=== PATIENT | female | born 1950 | race Hispanic/Latino ===

== ENCOUNTER → 2017-08-14 | Outpatient (CLI) | payer OTHER, MEDICARE | END | disposition home or self-care (01) | LOC: RAH 10:24 | PROVIDERS: ATTEND Family Medicine | DX: Z12.31 Encounter for screening mammogram for malignant neoplasm of breast (principal) | CPT/HCPCS: 77067 ==

== ENCOUNTER → 2019-10-01 | Outpatient (CLI) | payer OTHER, MEDICARE | END | disposition home or self-care (01) | LOC: RAH 13:15 | PROVIDERS: ATTEND Family Medicine | DX: Z12.31 Encounter for screening mammogram for malignant neoplasm of breast (principal) | CPT/HCPCS: 77067 ==

== ENCOUNTER → 2020-10-06 | Outpatient (CLI) | payer OTHER, MEDICARE | END | disposition home or self-care (01) | LOC: RAH 14:35 | PROVIDERS: ATTEND Family Medicine | DX: Z12.31 Encounter for screening mammogram for malignant neoplasm of breast (principal) | CPT/HCPCS: 77067 ==

== ENCOUNTER → 2022-05-14 | Outpatient (CLI) | payer OTHER, MEDICARE | END | disposition home or self-care (01) | LOC: RAH 13:56 | PROVIDERS: ATTEND Family Medicine | DX: Z12.31 Encounter for screening mammogram for malignant neoplasm of breast (principal) | CPT/HCPCS: 77067 ==

== ENCOUNTER → 2023-05-15 | Outpatient (CLI) | payer OTHER, MEDICARE | END | disposition home or self-care (01) | LOC: RAH 09:04 | PROVIDERS: ATTEND Family Medicine | DX: Z12.31 Encounter for screening mammogram for malignant neoplasm of breast (principal) | CPT/HCPCS: 77067 ==

== ENCOUNTER 2024-05-24 22:22 | Inpatient (IN) | payer OTHER, MEDICARE ==
[~2024-05-24] VITALS: Ht 152.4 cm; Wt 63.3 kg
--- NOTE | 2024-05-24 22:36 | EKG ---
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
[2024-05-24 23:13] LABS: BASOPHILS # (AUTO) 0.03 K/uL (0.00-0.20); BASOPHILS % (AUTO) 0.3 % (0.0-5.0); EOSINOPHILS # (AUTO) 0.05 K/uL (0.00-0.70); EOSINOPHILS % (AUTO) 0.5 % (0.0-8.0); HEMATOCRIT 39.8 % (36-48); IMMATURE GRANULOCYTE ABSOLUTE 0.06 K/uL (0-1); LYMPHOCYTES # (AUTO) 1.7 K/uL (1.0-4.8); LYMPHOCYTES % (AUTO) 15.9 % (21.0-51.0); MEAN CORPUSCULAR HEMOGLOBIN 27.9 pg (27.0-33.0); MEAN CORPUSCULAR HGB CONC 32.2 g/dL (32.0-36.0); MEAN CORPUSCULAR VOLUME 86.9 fL (79-99); MONOCYTES # (AUTO) 0.5 K/uL (0.1-1.0); MONOCYTES % (AUTO) 5.1 % (3.0-13.0); NEUTROPHILS # (AUTO) 8.2 K/uL (1.8-7.7); NEUTROPHILS % (AUTO) 77.6 % (40.0-77.0); PLATELET COUNT (AUTO) 325 K/uL (130-400); RED BLOOD CELL COUNT(AUTO) 4.58 MIL/uL (4.00-5.50); RED CELL DISTRIBUTION WIDTH 13.2 % (11.0-15.5); WHITE BLOOD COUNT (AUTO) 10.6 K/uL (4.8-10.8)
[2024-05-24 23:26] LABS: POTASSIUM 3.4 mmol/L (3.5-5.1)
[2024-05-24 23:32] LABS: ALBUMIN 3.5 g/dL (3.5-5.0); BILIRUBIN,DIRECT 0.1 mg/dL (0.0-0.3); BILIRUBIN,TOTAL 0.6 mg/dL (0.2-1.0); TOTAL PROTEIN, SERUM 7.1 g/dL (6.0-8.3)
[2024-05-24] MEDS: ondanSETRON 4MG INJ IVP ONE (23:43)
[2024-05-24] MEDS: morPHINE 4 MG SYG IVP ONE (23:44)
[2024-05-24] MEDS: LACTATED RINGERS 1000ML 1,000 ML IV ONE (23:45)
[2024-05-24 23:56] LABS: APPEARANCE,URINE CLOUDY (CLEAR); BILIRUBIN,URINE NEGATIVE (NEGATIVE); COLOR,URINE LIGHT-YELLOW (YELLOW); GLUCOSE, URINE (UA) NEGATIVE (NEGATIVE); KETONES,URINE 20 mg/dL (NEGATIVE); LEUKOCYTE ESTERASE ,URINE 250 Leu/uL (NEGATIVE); NITRATE,URINE NEGATIVE (NEGATIVE); OCCULT BLOOD,URINE LARGE (NEGATIVE); PH,URINE 6.5 (5.0-8.0); PROTEIN,URINE 20 mg/dL (NEGATIVE); UROBILINOGEN,URINE 0.2 mg/dL (0.2-1.0)
[2024-05-25 00:02] LABS: ADD UA MICROSCOPIC YES
[2024-05-25 00:03] LABS: BACTERIA,URINE None Seen /HPF (None Seen); RBC,URINE TNTC /HPF (0-1); SQUAMOUS EPITHELIAL CELL,UR Few /HPF (0-2); WBC,URINE 26-50 /HPF (0-1)
[2024-05-25 00:04] LABS: MUCUS,URINE Rare LPF (None Seen)
--- NOTE | 2024-05-25 00:05 | NUR ---
MD MADE AWARE OF POTASSIUM LEVEL. ORDERES GIVEN AT THIS TIME.
[2024-05-25] MEDS: PoTASSium chl 10% ELIXIR 20MEQ 20 MEQ/15 ML UDCUP PO ONE (00:11)
--- NOTE | 2024-05-25 00:43 | ERN ---
General Chief Complaint: Abdominal Pain Stated Complaint: ABD PAIN, N/V Time Seen by MD: 22:40 History of Present Illness Initial Comments Mrs Staley is a 73-year-old female significant past medical history of type 2 diabetes and essential hypertension comes in with a history of abdominal pain and nausea and vomiting. Patient reports that this started earlier last night after eating 2 tacos. Patient reports that she has been having ongoing nausea and vomiting feeling poorly. Allergies: Coded Allergies: No Known Allergies (Unverified Allergy, Unknown, 05/24/24) Past Medical History Past Medical History: UTI Past Surgical History: None ROS Dictation Constitutional: Negative for fever,chills, and weight loss Eyes: Negative for injury, pain,redness, and discharge ENT: Negative for injury,pain or swelling Cardiovascular: Negative for chest pain, palpitations, and edema Respiratory: Negative for shortness of breath, cough, and wheezing, t Abdomen/GI: Positive for abdominal pain Back: Negative for injury and pain : Negative for injury, bleeding and discharge MS/Extremity: Negative for injury and deformity Skin: Negative for rash, and discoloration Neuro: Negative for headache, weakness, numbness, tingling, and seizure Psych: Negative for suicide ideation, homicidal ideation, and hallucinations Physical Exam Physical Exam Dictation General: awake, alert, NAD Head/Face: Normocephalic, atraumatic Eyes: PERRL, EOMI, ENT: oral cavity clear, Neck: Trachea midline, supple Cardiovascular: RRR, normal S1/S2, No MRGs, no JVD Respiratory: CTAB, no respiratory distress, Abdomen: Pain with palpation in the bilateral lower quadrants Skin: Warm, dry, normal turgor, no rash MS/Extremity: Pulses equal Neuro: COAx4, GCS 15 Results Laboratory and Microbiology Lab and Micro Result Laboratory Tests Test 05/24/24 22:38 05/24/24 23:38 White Blood Count 10.6 K/uL (4.8-10.8) Red Blood Count 4.58 MIL/uL (4.00-5.50) Hemoglobin 12.8 g/dL (12.0-16.0) Hematocrit 39.8 % (36-48) Mean Corpuscular Volume 86.9 fL (79-99) Mean Corpuscular Hemoglobin 27.9 pg (27.0-33.0) Mean Corpuscular Hemoglobin Concent 32.2 g/dL (32.0-36.0) Red Cell Distribution Width 13.2 % (11.0-15.5) Platelet Count 325 K/uL (130-400) Mean Platelet Volume 10.3 fL (7.5-10.5) Immature Granulocyte % (Auto) 0.6 % (0-1) Neutrophils (%) (Auto) 77.6 % (40.0-77.0) H Lymphocytes (%) (Auto) 15.9 % (21.0-51.0) L Monocytes (%) (Auto) 5.1 % (3.0-13.0) Eosinophils (%) (Auto) 0.5 % (0.0-8.0) Basophils (%) (Auto) 0.3 % (0.0-5.0) Neutrophils # (Auto) 8.2 K/uL (1.8-7.7) H Lymphocytes # (Auto) 1.7 K/uL (1.0-4.8) Monocytes # (Auto) 0.5 K/uL (0.1-1.0) Eosinophils # (Auto) 0.05 K/uL (0.00-0.70) Basophils # (Auto) 0.03 K/uL (0.00-0.20) Absolute Immature Granulocyte (auto 0.06 K/uL (0-1) Nucleated Red Blood Cells 0.0 % (0.0-0.19) Sodium Level 147 mmol/L (136-145) H Potassium Level 3.4 mmol/L (3.5-5.1) L Chloride Level 109 mmol/L (101-111) Carbon Dioxide Level 27 mmol/L (21-32) Blood Urea Nitrogen 12 mg/dL (7-18) Creatinine 1.0 mg/dL (0.5-1.0) Glomerular Filtration Rate Calc 59 mL/min (>90) Random Glucose 114 mg/dL (70-105) H Total Calcium 9.4 mg/dL (8.5-10.1) Total Bilirubin 0.6 mg/dL (0.2-1.0) Direct Bilirubin 0.1 mg/dL (0.0-0.3) Aspartate Amino Transf (AST/SGOT) 23 U/L (10-37) Alanine Aminotransferase (ALT/SGPT) 21 U/L (12-78) Alkaline Phosphatase 84 U/L (50-136) Troponin I High Sensitivity 12 ng/L (4-50) Total Protein 7.1 g/dL (6.0-8.3) Albumin 3.5 g/dL (3.5-5.0) Lipase 42 U/L (16-77) Urine Color LIGHT-YELLOW (YELLOW) Urine Appearance CLOUDY (CLEAR) H Urine pH 6.5 (5.0-8.0) Urine Specific [place] 1.016 (1.001-1.031) Urine Protein 20 mg/dL (NEGATIVE) H Urine Glucose (UA) NEGATIVE mg/dL (NEGATIVE) Urine Ketones 20 mg/dL (NEGATIVE) H Urine Occult Blood LARGE (NEGATIVE) H Urine Nitrate NEGATIVE (NEGATIVE) Urine Bilirubin NEGATIVE mg/dL (NEGATIVE) Urine Urobilinogen 0.2 mg/dL (0.2-1.0) Urine Leukocyte Esterase 250 Magda/uL (NEGATIVE) H Urine RBC TNTC /HPF (0-1) H Urine WBC 26-50 /HPF (0-1) H Urine Squamous Epithelial Cells Few /HPF (0-2) Urine Bacteria None Seen /HPF (None Seen) MDM Patient has a distended edematous gallbladder that will need to be further investigated MDM: Differential diagnosis: Cholecystitis Rationale: Tests considered and ordered secondary to shared decision making include: labs, ECG and radiology Previous outside records reviewed: Old ER visits. Risk of complication and/or morbidity or mortality of patient management: None Medications-Per medication reconciliation Need for hospitalization: Patient does meet criteria for hospitalization. Need for emergency major/minor surgery: No There are no social concerns with this patient. Prescription drug management Prescriptions will include symptomatic care Patient's prior external medical records from other ER visits were reviewed by me as indicated. Prior testing and results from previous visits were reviewed. Prior tests were taken into account with medical decision making and resource utilization, independent historian/historians were used to obtain complete medical history. I independently interpreted the test that were performed, results were reviewed by me and considered findings on radiology if ordered. Medical management and examination interpretation discussions were had by me with other qualified healthcare professionals as indicated for the patient's care. ED Course Orders Procedure Category Date Status Time Vital Signs Per CPOE 05/24/24 Transmitted Routine 22:26 Saline Lock Iv CPOE 05/24/24 Transmitted 22:26 Cbc With Differential LAB 05/24/24 Complete 22:26 Lipase LAB 05/24/24 Complete 22:26 Urinalysis Profile LAB 05/24/24 Complete 22:26 12 Lead Ekg Tracing- EKG 05/24/24 Complete Technical 22:26 Troponin I High LAB 05/24/24 Complete Sensitivity 22:26 Basic Metabolic Panel LAB 05/24/24 Complete 22:26 Hepatic Function Panel LAB 05/24/24 Complete 22:26 Lactated Ringers PHA 05/24/24 Complete 1000ml (Lactated 23:30 Morphine 4mg Syg PHA 05/24/24 Complete (Morphine 4mg Syg) 23:30 Ondansetron 4mg Inj PHA 05/24/24 Complete (Zofran 4mg Inj) 23:30 Culture Urine SUDHEER 05/25/24 In Process 00:03 Potassium Chl 10% PHA 05/25/24 Complete Elixir 20meq (Kcl 10% 00:30 Ct Abdomen/Pelvis CT 05/25/24 Resulted W/Contrast 00:25 Iohexol (Omnipaque) PHA 05/25/24 Complete 01:05 Us Abdominal Ruq\Ltd US 05/25/24 Taken 02:05 Current Medications Medications (Trade) Dose Ordered Sig/Rafa Route PRN Reason Start Time Stop Time Status Last Admin Dose Admin Iohexol (Omnipaque) 75 ml STK-MED ONCE IV 05/25/24 01:05 05/25/24 01:07 DC Lactated Ringer's 1,000 ml @ 0 mls/hr ONCE ONCE IV 05/24/24 23:30 05/24/24 23:31 DC 05/24/24 23:45 Morphine Sulfate (morPHINE 4MG SYG) 4 mg ONCE ONCE IVP 05/24/24 23:30 05/24/24 23:31 DC 05/24/24 23:44 Ondansetron HCl (zoFRAN 4MG INJ) 4 mg ONCE ONCE IVP 05/24/24 23:30 05/24/24 23:31 DC 05/24/24 23:43 Potassium Chloride (KCl 10% Elixir 20meq/15ml) 40 meq ONCE ONCE PO 05/25/24 00:30 05/25/24 00:31 DC 05/25/24 00:11 Vital Signs Date Time Temp Pulse Resp B/P (MAP) Pulse Ox O2 Delivery O2 Flow Rate FiO2 05/25/24 02:52 58 16 162/54 99 Room Air* 0 21 05/24/24 23:12 70 20 171/81 100 Room Air* 0 21 05/24/24 22:23 99.0 76 16 170/77 98 Room Air DX & DISP Disposition: Inpatient Departure Impression: Primary Impression: Cholecystitis Condition: Stable Referrals: JAYLAN HENRIQUEZ MD (PCP) CINDY ORELLANA MD May 25, 2024 00:43
[2024-05-25] MEDS ORDERED: IOHEXOL-350 75 ML VIAL IV ONE (01:05)
--- NOTE | 2024-05-25 01:33 | HMCIMG ---
CT ABDOMEN/PELVIS W/CONTRAST HISTORY: Pain COMPARISON: None TECHNIQUE: Multiple sequential axial images of the abdomen and pelvis were obtained from the dome of the diaphragm through symphysis pubis. Patient was given 75 cc of Omnipaque through intravenous route. Oral contrast was not given. FINDINGS: No pleural effusion is seen bilaterally. There is no evidence of parenchymal disease or pulmonary nodule of the visualized lower lungs. Degenerative changes of the thoracolumbar spine are present. The heart is not enlarged. Gallstones are seen in the distended gallbladder. Gastric distention is seen. The liver, spleen, adrenal glands and pancreas are unremarkable. No hydronephrosis is seen on the left. There is right hydronephrosis and right hydroureter with 5 mm renal stone in the right distal ureter. Right perinephric fat stranding is seen. There is diverticulosis. Fecal material is seen in the colon. There are normal size retroperitoneal and mesenteric lymph nodes. No ascites is seen. Atherosclerotic changes are present. Pelvic sidewalls are symmetric bilaterally. Bladder is well distended without wall thickening. IMPRESSION: 1. Distended gallbladder with gallstones. 2. Right hydronephrosis and right hydroureter with 5 mm renal stone in the right distal ureter. 3. Diverticulosis. CT was performed with one or more following dose reduction techniques: automated exposure control, adjustment of the mA and kv according to patient's size, or use of a iterative reconstruction technique.
[2024-05-25] MEDS ORDERED: acetaMINOPHEN 650 MG SUPPOSITORY RC PRN (06:00)
[2024-05-25] MEDS ORDERED: TEMAZepam 15 MG CAPSULE PO PRN (06:00)
[2024-05-25] MEDS ORDERED: hydroMORPHone 0.5 MG SYG (0.5MG/0.5ML) IVP PRN (06:00)
[2024-05-25] MEDS ORDERED: PoTASSium chloRIDE 10MEQ/100ML 100 ML IV PRN (06:00)
[2024-05-25] MEDS ORDERED: ondanSETRON 4MG INJ IVP PRN (06:00)
[2024-05-25] MEDS ORDERED: acetaMINOPHEN 325 MG TAB PO PRN (06:00)
[2024-05-25] MEDS ORDERED: doCUSate SODIUM 100 MG CAP PO PRN (06:00)
[2024-05-25] MEDS ORDERED: DEXTROSE 50%-WATER 50 ML DISP.SYRIN IV PRN (06:00)
[2024-05-25] MEDS ORDERED: LACTULOSE 20 GM/30 ML UDCUP PO PRN (06:00)
[2024-05-25] MEDS ORDERED: hydrALAZine 20MG/ML VIAL IV PRN (06:00)
[2024-05-25] MEDS ORDERED: GLUCAGON 1MG KIT 1 MG ML IM PRN (06:00)
--- NOTE | 2024-05-25 07:05 | NUR ---
ASSUMED PRIMARY CARE AT THIS TIME, PT IS AAOX4 NO DISTRESS, HAS NO COMPLAINTS AT THIS TIME
[2024-05-25] MEDS: LACTATED RINGERS 1000ML 1,000 ML IV SCH (07:08)
[2024-05-25] MEDS: CEFTRIAXONE 2GM VIAL IVPB SCH (07:08)
--- NOTE | 2024-05-25 07:12 | NUR ---
REPORT GIVEN TO TERESA RN AT THIS TIME
[2024-05-25] MEDS: INSULIN humuLIN R 100 UNIT/ML 3ML SQ SCH (07:30)
--- NOTE | 2024-05-25 08:41 | HMCIMG ---
US ABDOMINAL RUQ\E\LTD HISTORY: pain COMPARISON: None FINDINGS: There is normal sonographic appearance of the liver. There are no focal liver masses. The liver is not enlarged.There are multiple stones present within the gallbladder. There is some gallbladder wall thickening but no pericholecystic edema. Common duct is normal at 5 mm.. Right kidney is 11.1 x 5.1 x 4.4 cm. There is moderate right hydronephrosis and proximal hydroureter..The pancreas appears normal. IMPRESSION: 1. Moderate right hydronephrosis and proximal right hydroureter. 2. Cholelithiasis, there is gallbladder wall thickening but no pericholecystic edema.
--- NOTE | 2024-05-25 15:46 | HP ---
[facility] HISTORY & PHYSICAL Date Patient Seen: May 25, 2024 Time of Visit: 15:46 Supervising Physician: Neal Watkins Primary Care Physician: Dr. Mile Santana Outpatient Specialists: NA Inpatient Consults: Dr. Menezes, Dr. Barton PROBLEM LIST: Acute cholelithiasis- possible acute cholecystitis Acute complicated cystitis Right hydronephrosis with right hydroureter with 5 mm renal stone Hypernatremia 2/2 hypovolemia Hypokalemia Hypertension Sinus bradycardia Hx. Hypertension, hyperlipidemia, GERD HPI: This is a 72-year-old female with past medical history of essential hypertension who came to the hospital with complaint of abdominal pain, nausea and vomiting. According to the patient, she has been having pain for the past five days. She reported pain in the right upper quadrant that did not radiate. She reported not taking any medication for this. She had been having nausea and vomiting but denies diarrhea. In addition, patient has dysuria. She denies any fever or chills. She denies any contact with sick person. Patient is an avid Coke drinker. She does not drink alcohol or smoke. In the ED, patient was found to have distended gallbladder per CT scan of the abdomen. Ultrasound of the abdomen was obtained and she has cholelithiasis with gallbladder wall thickening without any pericholecystic edema. She also has moderate right hydronephrosis with right hydroureter. HIDA scan is pending. In ED patient was found to have creatinine of 1.0 bicarb is 27 potassium is 3.4. She has WBC of 10 hemoglobin is 12.8. UA was with WBC 26 to 50. PAST MEDICAL HX: Hypertension Hyperlipidemia GERD PAST SURGICAL HX: noncontributory SOCIAL HISTORY: Denies tobacco, ETOH, or illicit drug use Lives with Coded Allergies: No Known Allergies (Unverified Allergy, Unknown, 05/24/24) REVIEW OF SYSTEMS: General: No Fever, No Chills, No Night Sweats, No Fatigue, No Malaise, No Appetite HEENT: No Head Aches, No Visual Changes, No Eye Pain, No Ear Pain, No Dysphasia, No Sinus Congestion, No Post Nasal Drip, No Sore Throat Pulmonary: No Dyspnea; No Cough, No Pleuritic Chest Pain Cardiovascular: No: Chest Pain, Palpitations, Orthopnea, Paroxysmal Noc. Dyspnea, Edema, Lt Headedness Gastrointestinal: yes: Nausea, Vomiting, Abdominal Pain, No Diarrhea, Constipation, Melena, Hematochezia Genitourinary: No Dysuria, No Frequency, No Incontinence, No Hematuria, No Retention Musculoskeletal: No: other, neck pain, shoulder pain, arm pain, back pain, hand pain, leg pain, foot pain Skin: No Urticaria, No Rash Neurological: No: Weakness, Numbness, Incoordination, Change in speech, Confusion, Seizures PHYSICAL EXAM: GENERAL: alert, weak, awake oriented x 3 HEENT: EOMI, Sclera non icteric, moist mucosa NECK: Supple, no JVD, trachea midline LUNGS: Clear breath sounds bilaterally. No wheezes HEART: Regular rate and rhythm. Normal S1 and S2, without murmurs ABD: Abdomen soft, tender to touch to right upper quadrant. Bowel sounds present EXT: No clubbing cyanosis or edema NEURO: Alert and oriented to person, follows commands Vital Signs (last 8hr) Date Time Temp Pulse Resp B/P (MAP) Pulse Ox O2 Delivery O2 Flow Rate FiO2 05/25/24 11:00 50 20 107/46 96 Room Air* 0 21 LABS: Hematology Labs: Test 05/24/24 22:38 Range/Units White Blood Count 10.6 4.8-10.8 K/uL Red Blood Count 4.58 4.00-5.50 MIL/uL Hemoglobin 12.8 12.0-16.0 g/dL Hematocrit 39.8 36-48 % Mean Corpuscular Volume 86.9 79-99 fL Mean Corpuscular Hemoglobin 27.9 27.0-33.0 pg Mean Corpuscular Hemoglobin Concent 32.2 32.0-36.0 g/dL Red Cell Distribution Width 13.2 11.0-15.5 % Platelet Count 325 130-400 K/uL Mean Platelet Volume 10.3 7.5-10.5 fL Immature Granulocyte % (Auto) 0.6 0-1 % Neutrophils (%) (Auto) 77.6 H 40.0-77.0 % Lymphocytes (%) (Auto) 15.9 L 21.0-51.0 % Monocytes (%) (Auto) 5.1 3.0-13.0 % Eosinophils (%) (Auto) 0.5 0.0-8.0 % Basophils (%) (Auto) 0.3 0.0-5.0 % Neutrophils # (Auto) 8.2 H 1.8-7.7 K/uL Lymphocytes # (Auto) 1.7 1.0-4.8 K/uL Monocytes # (Auto) 0.5 0.1-1.0 K/uL Eosinophils # (Auto) 0.05 0.00-0.70 K/uL Basophils # (Auto) 0.03 0.00-0.20 K/uL Absolute Immature Granulocyte (auto 0.06 0-1 K/uL Nucleated Red Blood Cells 0.0 0.0-0.19 % Chemistry Labs: Test 05/25/24 11:34 05/24/24 22:38 Range/Units Whole Blood Glucose 89 70-110 MG/DL Sodium Level 147 H 136-145 mmol/L Potassium Level 3.4 L 3.5-5.1 mmol/L Chloride Level 109 101-111 mmol/L Carbon Dioxide Level 27 21-32 mmol/L Blood Urea Nitrogen 12 7-18 mg/dL Creatinine 1.0 0.5-1.0 mg/dL Glomerular Filtration Rate Calc 59 >90 mL/min Random Glucose 114 H 70-105 mg/dL Total Calcium 9.4 8.5-10.1 mg/dL Total Bilirubin 0.6 0.2-1.0 mg/dL Direct Bilirubin 0.1 0.0-0.3 mg/dL Aspartate Amino Transf (AST/SGOT) 23 10-37 U/L Alanine Aminotransferase (ALT/SGPT) 21 12-78 U/L Alkaline Phosphatase 84 50-136 U/L Troponin I High Sensitivity 12 4-50 ng/L Total Protein 7.1 6.0-8.3 g/dL Albumin 3.5 3.5-5.0 g/dL Lipase 42 16-77 U/L DIAGNOSTICS / RADIOLOGY RESULTS: CT ABDOMEN/PELVIS W/CONTRAST HISTORY: Pain COMPARISON: None TECHNIQUE: Multiple sequential axial images of the abdomen and pelvis were obtained from the dome of the diaphragm through symphysis pubis. Patient was given 75 cc of Omnipaque through intravenous route. Oral contrast was not given. FINDINGS: No pleural effusion is seen bilaterally. There is no evidence of parenchymal disease or pulmonary nodule of the visualized lower lungs. Degenerative changes of the thoracolumbar spine are present. The heart is not enlarged. Gallstones are seen in the distended gallbladder. Gastric distention is seen. The liver, spleen, adrenal glands and pancreas are unremarkable. No hydronephrosis is seen on the left. There is right hydronephrosis and right hydroureter with 5 mm renal stone in the right distal ureter. Right perinephric fat stranding is seen. There is diverticulosis. Fecal material is seen in the colon. There are normal size retroperitoneal and mesenteric lymph nodes. No ascites is seen. Atherosclerotic changes are present. Pelvic sidewalls are symmetric bilaterally. Bladder is well distended without wall thickening. IMPRESSION: 1. Distended gallbladder with gallstones. 2. Right hydronephrosis and right hydroureter with 5 mm renal stone in the right distal ureter. 3. Diverticulosis. PLAN NEURO: Minimize central acting medications as possible. Maintain fall precautions, adequate lighting during the day PULMONARY: Supplemental 02 as needed. Maintain aspiration precautions at all times CARDIOVASCULAR: Follow hemodynamics. Vital signs per facility protocol GI & NUTRITION: Continue with nutritional support. Continue stool softeners and laxatives as needed. Obtain HIDA scan Consult gen surgery for cholelithiasis possible cholecystitis IVF KIDNEYS & ELECTROLYTES: Strict monitoring of intake, output and overall fluid balance. Avoid nephrotoxic medications to the extent possible. Medications to be dosed according to renal function. Monitor electrolytes and replace as needed Consult urology for kidney stone IVF Trend renal function ENDOCRINE: Maintain blood glucose between 100-180 at all times. Hypoglycemia protocol in place INFECTIOUS DISEASE: Trend temperature, WBC and procalcitonin level Follow cultures, deescalate antibiotics as soon as possible. Panculture if new onset fever Rocephin Continue to follow culture ONCOLOGY/HEMATOLOGY/COAGULATION: Monitor for s/s of bleeding Monitor hemoglobin, coagulation studies as needed SKIN: Pressure ulcer prevention per facility protocol Specialty mattress ORTHO/REHAB: Continue PT/OT Prophylaxis: Continue GI and DVT prophylaxis Code Status: Full Resuscitation Disposition: TBD Other: Total patient care time exceeds 35 minutes excluding all procedures. IDANIA LEVINE PROGRESS MAN May 25, 2024 15:46
--- NOTE | 2024-05-25 17:01 | NUR ---
[facility] REPORT CALLED , ADVISED NURSE PT IN HIDA SCAN WILL TRANSPORT PATIENT ONCE SHE RETURNS FROM PROCEDURE
[2024-05-25 18:42] LABS: BASOPHILS # (AUTO) 0.03 K/uL (0.00-0.20); BASOPHILS % (AUTO) 0.5 % (0.0-5.0); EOSINOPHILS # (AUTO) 0.08 K/uL (0.00-0.70); EOSINOPHILS % (AUTO) 1.3 % (0.0-8.0); HEMATOCRIT 36.7 % (36-48); IMMATURE GRANULOCYTE ABSOLUTE 0.03 K/uL (0-1); LYMPHOCYTES # (AUTO) 1.8 K/uL (1.0-4.8); LYMPHOCYTES % (AUTO) 29.2 % (21.0-51.0); MEAN CORPUSCULAR HEMOGLOBIN 28.4 pg (27.0-33.0); MEAN CORPUSCULAR HGB CONC 31.9 g/dL (32.0-36.0); MEAN CORPUSCULAR VOLUME 89.1 fL (79-99); MONOCYTES # (AUTO) 0.4 K/uL (0.1-1.0); MONOCYTES % (AUTO) 6.6 % (3.0-13.0); NEUTROPHILS # (AUTO) 3.9 K/uL (1.8-7.7); NEUTROPHILS % (AUTO) 61.9 % (40.0-77.0); PLATELET COUNT (AUTO) 257 K/uL (130-400); RED BLOOD CELL COUNT(AUTO) 4.12 MIL/uL (4.00-5.50); RED CELL DISTRIBUTION WIDTH 13.6 % (11.0-15.5); WHITE BLOOD COUNT (AUTO) 6.2 K/uL (4.8-10.8)
[2024-05-25 19:03] LABS: ALBUMIN 2.8 g/dL (3.5-5.0); BILIRUBIN,TOTAL 0.6 mg/dL (0.2-1.0); CREATININE 0.9 mg/dL (0.5-1.0); POTASSIUM 3.7 mmol/L (3.5-5.1)
[2024-05-25 20:00] VITALS: BP 170/88; PULSE 63; RESP 20; TEMP 99.7
[2024-05-25 21:51] VITALS: O2SAT 99
[2024-05-26] VITALS (8 sets, daily range): BP systolic 136–156; BP diastolic 53–75; PULSE 49–60; RESP 16–20; TEMP 98.2–98.7; O2SAT 98–99
[2024-05-26 00:48] LABS: CREATININE 0.9 mg/dL (0.5-1.0); POTASSIUM 3.5 mmol/L (3.5-5.1)
[2024-05-26 00:52] LABS: MAGNESIUM 1.6 mg/dL (1.80-2.40); PHOSPHORUS 2.8 mg/dL (2.5-4.9)
[2024-05-26] MEDS: MAGNESIUM 2GM PREMIX 50ML 50 ML IV PRN (01:48)
[2024-05-26] MEDS ORDERED: PoTASSium chl 10% ELIXIR 20MEQ 20 MEQ/15 ML UDCUP PO PRN (02:00)
[2024-05-26] MEDS ORDERED: PoTASSium chloRIDE 20MEQ/100ML 100 ML IV PRN (02:00)
[2024-05-26] MEDS: PoTASSium chloRIDE 20MEQ ER 20 MEQ ERTAB PO PRN (02:52)
--- NOTE | 2024-05-26 04:50 | NUR ---
RECEIVED REPORT FROM PROJECT MANAGER FINANCE TECH THAT PATIENT SHOWED 2ND DEGREE BLOCK TYPE 2 HR 34, NON SUSTAINED SAID SHE HAD RETURNED TO HR 50'S. PATIENT REPORTS NO FEELING ANY SYMPTOMS OR ANYTHING UNUSUAL. CONTACTED AYAKA TORRES NP VIA ANSWERING SERVICE. NOTIFIED HIM OF ABOVE. ORDERS RECEIVED FOR CARDIOLOGY CONSULT LATER IN AM. 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
[2024-05-26 05:52] LABS: HEMATOCRIT 32.5 % (36-48); MEAN CORPUSCULAR HEMOGLOBIN 28.3 pg (27.0-33.0); MEAN CORPUSCULAR VOLUME 88.6 fL (79-99); RED BLOOD CELL COUNT(AUTO) 3.67 MIL/uL (4.00-5.50); RED CELL DISTRIBUTION WIDTH 13.3 % (11.0-15.5); WHITE BLOOD COUNT (AUTO) 5.7 K/uL (4.8-10.8)
[2024-05-26 06:09] LABS: CREATININE 0.8 mg/dL (0.5-1.0); MAGNESIUM 2.6 mg/dL (1.80-2.40); POTASSIUM 3.9 mmol/L (3.5-5.1)
--- NOTE | 2024-05-26 07:49 | EKG ---
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
[2024-05-26] MEDS: ENOXAPARIN SODIUM 30 MG/0.3 ML SQ SCH (09:08)
--- NOTE | 2024-05-26 09:08 | HMCIMG ---
NM HIDA WO EF/CCK REASON: Cholelithiasis r/o cholecystitis COMPARISON: None TECHNIQUE: Routine imaging protocol was performed following injection of 6 mCi technetium 99m Choletec. FINDINGS: There is normal hepatic parenchymal uptake following injection of isotope. There is prompt excretion into the common duct and small bowel. A very small amount of gallbladder activity on the final few images during the one-hour sequence. 2 and 3 hour delay images were obtained. These do demonstrate gallbladder activity present. IMPRESSION: 1. Somewhat slow appearance of gallbladder activity, but otherwise negative hepatobiliary scan, no evidence of common or cystic duct obstruction.
--- NOTE | 2024-05-26 12:11 | HMCSR ---
APPROVED REPORT EXAM: Two-dimensional and M-mode echocardiogram with Doppler and color Doppler. INDICATION ICD: heart block 2D Dimensions RVDd3.7 cmLVEF(%)33.8 (>50%)LVED Vol(simp.)57.7 mL IVSd0.6 (0.7-1.1cm)FS(%)16 %LVES Vol(simp.)21.6 mL LVDd4.4 (3.8-5.6cm)LA (2D)4.1 (1.6-4.0cm)LVEF(%, simp.)63 % PWd1.1 (0.7-1.1cm)Ao Root(2D)2.7 (2.0-3.7cm)LA ESV INDEX (4CH)21.90 mL/m2 IVSs0.7 cmLVOT diam1.8 (1.8-2.4cm)LA ESV INDEX (2CH)27.50 mL/m2 LVDs3.7 (2.5-4.0cm)LA ESV INDEX (BP)24.10 mL/m2 PWs1.2 cm Deformation Strain Apical 425.0 % Apical 229.0 % Apical 331.0 % Global Pfninp11.0 % M-Mode Dimensions EPSS0.8 cm LA (MM)4.1 (1.6-4.0cm) Ao Root(MM)2.6 (2.0-3.7cm) Aortic Valve AoV VTI0.4 mAo Mean GR5.0 mmHgLVOT VTI0.21 m NICK (VMAX)1.4 cm2AVA (VTI) 1.4 cm2 Mitral Valve MV E Vmax99.0 cm/sDECEL Iaab193 ms MV A Vmax51.4 cm/sP 1/2 T70 ms E/A ratio1.9MVA (PHT)3.1 cm2 MR Max PG41 mmHg TDI E/E' Cramso39.5E/E' Rlxgyqv24.5 Medial E' Peak V6.40 cm/sLateral E' Peak V7.90 cm/s Pulmonary Valve PV Vmax0.8 m/s PV Peak GR2.8 mmHg Tricuspid Valve TR Vmax2.0 m/s TR Peak GR16.0 mmHg Left Ventricle The left ventricle is normal size. GLS -28%. There is normal LV segmental wall motion. There is molly l left ventricular wall thickness. LVEF is 60-65%. Indeterminate diastolic dysfunction. Right Ventricle The right ventricle is normal size. The right ventricular systolic function is normal. Atria The left atrium size is normal. The right atrium size is normal. Aortic Valve The aortic valve is normal in structure. No aortic regurgitation is present. There is no aortic valvu lar stenosis. Mitral Valve The mitral valve is normal in structure. Mitral regurgitation is mild. There is no mitral valve steno sis. Tricuspid Valve The tricuspid valve is normal in structure. There is no tricuspid valve regurgitation noted. Pulmonic Valve The pulmonary valve is normal in structure. There is no pulmonic valvular regurgitation. Great Vessels The aortic root is normal in size. The IVC is normal in size and collapses >50% with inspiration. Pericardium There is no pericardial effusion. Conclusion LVEF is 60-65%.
--- NOTE | 2024-05-26 12:22 | NUR ---
bladder scan 53 ml
--- NOTE | 2024-05-26 15:31 | CONS ---
CONSULTATION NOTE Date of Service: May 26, 2024 Reason for Consultation: [GALLSTONES ] Requesting Physician: [ BIS SERVICE ] HISTORY OF PRESENT ILLNESS: [Patient who presented to the hospital with increasing right flank pain. Patient indicates the right flank plain was undulating. There appears to be an association with fatty food intake. Recently the the pain got significantly wo rse patient decided to come to the emergency room. In the emergency room patient had lab work done that shows no leukocytosis. Patient did have a CT scan which I personally reviewed. The CT scan shows a distended gallbladder with very large gallstones within it. I also reviewed the HIDA scan that was done with the patient. There is delayed ejection fraction but there appears to be contrast flowing from the gallbladder down to the bowel. This is just suggestive of symptomatic cholelithiasis. Currently patient denies any melena, hematochezia, hematuria. ] REVIEW OF SYSTEMS CONSTITUTIONAL: Denies fever, chills, or fatigue. HEAD/FACE: No signs of trauma. EENT: Denies eye pain, blurred vision, double vision, or light sensitivity. RESPIRATORY: Denies shortness of breath, cough, wheezing CARDIOVASCULAR: Denies chest pain, palpitation, syncope GASTROINTESTINAL/ABDOMINAL: Denies abdominal pain, constipation, diarrhea, nausea or vomiting GENITOURINARY: Denies dysuria or hematuria. MUSCULOSKELETAL: Denies joint pain, tenderness, or trauma. INTEGUMENTARY: Denies rash or itchiness NEUROLOGICAL/PSYCH: Denies anxiety, depression, heat or cold intolerance. PAST MEDICAL HISTORY: [ Hypertension ] PAST SURGICAL HISTORY: [ Patient denies ] PAST SOCIAL HISTORY: [ Patient denies any illicit drug use ] FAMILY HISTORY: [ Noncontributory ] Coded Allergies: No Known Allergies (Unverified Allergy, Unknown, 05/24/24) PHYSICAL EXAM PHYSICAL EXAM EYES: Sclera white HENT: Oral nasal mucosa pink and moist NECK: Supple, . LUNGS: Unlabored CARDIOVASCULAR: Regular rate and rhythm ABDOMEN: Soft, some slight tenderness in the right upper quadrant. No rebound. No peritoneal signs CENTRAL NERVOUS SYSTEM: Awake, alert, oriented x3 SKIN: No rashes, no swelling. LYMPHATICS: No peripheral lymphadenopathy MUSCULOSKELETAL: Motor and sensory function grossly intact EXTREMITIES: No cyanosis or clubbing BACK: No deformity, no pressure ulcer. Vital Sign (Last 24 Hours) 05/25/24 05/26/24 21:51 11:50 Temp 98.8 Pulse 49 Resp 19 B/P (MAP) 136/58 Pulse Ox 96 O2 Delivery Room Air O2 Flow Rate 0 FiO2 21 Intake & Output (last 24hrs) 05/25/24 05/25/24 05/26/24 15:00 23:00 07:00 Intake Total 400 ml Balance 400 ml LABS: Laboratory: Test 05/26/24 10:30 05/26/24 05:33 05/26/24 00:32 05/25/24 18:37 Range/Units Whole Blood Glucose 92 70-110 MG/DL White Blood Count 5.7 4.8-10.8 K/uL Red Blood Count 3.67 L 4.00-5.50 MIL/uL Hemoglobin 10.4 L 12.0-16.0 g/dL Hematocrit 32.5 L 36-48 % Mean Corpuscular Volume 88.6 79-99 fL Mean Corpuscular Hemoglobin 28.3 27.0-33.0 pg Mean Corpuscular Hemoglobin Concent 32.0 32.0-36.0 g/dL Red Cell Distribution Width 13.3 11.0-15.5 % Platelet Count 231 130-400 K/uL Mean Platelet Volume 10.0 7.5-10.5 fL Nucleated Red Blood Cells 0.0 0.0-0.19 % Sodium Level 146 H 136-145 mmol/L Potassium Level 3.9 3.5-5.1 mmol/L Chloride Level 112 H 101-111 mmol/L Carbon Dioxide Level 31 21-32 mmol/L Blood Urea Nitrogen 5 L 7-18 mg/dL Creatinine 0.8 0.5-1.0 mg/dL Glomerular Filtration Rate Calc 77 >90 mL/min Random Glucose 84 70-105 mg/dL Total Calcium 8.3 L 8.5-10.1 mg/dL Phosphorus Level 3.0 2.5-4.9 mg/dL Magnesium Level 2.60 H 1.80-2.40 mg/dL Ionized Calcium 1.12 L 1.16-1.32 MMOL/L Immature Granulocyte % (Auto) 0.5 0-1 % Neutrophils (%) (Auto) 61.9 40.0-77.0 % Lymphocytes (%) (Auto) 29.2 21.0-51.0 % Monocytes (%) (Auto) 6.6 3.0-13.0 % Eosinophils (%) (Auto) 1.3 0.0-8.0 % Basophils (%) (Auto) 0.5 0.0-5.0 % Neutrophils # (Auto) 3.9 1.8-7.7 K/uL Lymphocytes # (Auto) 1.8 1.0-4.8 K/uL Monocytes # (Auto) 0.4 0.1-1.0 K/uL Eosinophils # (Auto) 0.08 0.00-0.70 K/uL Basophils # (Auto) 0.03 0.00-0.20 K/uL Absolute Immature Granulocyte (auto 0.03 0-1 K/uL Lactic Acid Level 1.0 0.8-2.5 mmol/L Total Bilirubin 0.6 0.2-1.0 mg/dL Aspartate Amino Transf (AST/SGOT) 20 10-37 U/L Alanine Aminotransferase (ALT/SGPT) 16 # 12-78 U/L Alkaline Phosphatase 73 50-136 U/L Total Protein 6.0 6.0-8.3 g/dL Albumin 2.8 L 3.5-5.0 g/dL Procalcitonin < 0.05 L 0.05-0.5 ng/mL Test 05/24/24 23:38 05/24/24 22:38 Range/Units Urine Color LIGHT-YELLOW YELLOW Urine Appearance CLOUDY H CLEAR Urine pH 6.5 5.0-8.0 Urine Specific [place] 1.016 1.001-1.031 Urine Protein 20 H NEGATIVE mg/dL Urine Glucose (UA) NEGATIVE NEGATIVE mg/dL Urine Ketones 20 H NEGATIVE mg/dL Urine Occult Blood LARGE H NEGATIVE Urine Nitrate NEGATIVE NEGATIVE Urine Bilirubin NEGATIVE NEGATIVE mg/dL Urine Urobilinogen 0.2 0.2-1.0 mg/dL Urine Leukocyte Esterase 250 H NEGATIVE Magda/uL Urine RBC TNTC H 0-1 /HPF Urine WBC 26-50 H 0-1 /HPF Urine Squamous Epithelial Cells Few 0-2 /HPF Urine Bacteria None Seen None Seen /HPF Direct Bilirubin 0.1 0.0-0.3 mg/dL Troponin I High Sensitivity 12 4-50 ng/L Lipase 42 16-77 U/L DIAGNOSTICS / RADIOLOGY: [ ] ASSESSMENT: [Gallstones causing patient discomfort ] PLAN: [ Plan laparoscopic cholecystectomy with intraoperative cholangiogram. Risks associated with the procedure not limited to infection, bleeding, injury to surrounding structures has been explained to patient and she indicates she understands and would like to proceed.] YORDAN SAMANIEGO MD May 26, 2024 15:30
--- NOTE | 2024-05-26 15:56 | PN ---
[facility] PROGRESS NOTE Date Patient Seen: May 26, 2024 Time of Visit: 15:56 Supervising Physician: Dr. Neal Coyle Primary Care Physician: Dr. Mile Santana Outpatient Specialists: NA Inpatient Consults: Dr. Menezes, Dr. Barton PROBLEM LIST: Acute cholelithiasis Acute complicated cystitis Right hydronephrosis with right hydroureter with 5 mm renal stone Hypernatremia 2/2 hypovolemia Hypokalemia Hypertension Sinus bradycardia Hx. Hypertension, hyperlipidemia, GERD INTERVAL HISTORY: Patient was evaluated at bedside today, patient is high scan reported positive for cholelithiasis. In conversation with General surgery, patient was likely to go to the OR tomorrow for cholecystectomy laparoscopically. Patient was to be evaluated by Cardiology today. Due to the patient only having a 5 mm renal stone we will discontinue the Urology consult if her new renal ultrasound returns unremarkable. Patient declined any pain at the costovertebral angles, stone has likely dislodged him and passed at this time. Patient's blood work is unremarkable, we will continue to follow the patient postoperatively after her lap holly procedure. Plan Pending lap holly tomorrow Renal ultrasound pending Pending Cardiology consultation and recommendations regarding bradycardia and type 2 block Renal ultrasound Possible cancel of urology consultation if ultrasound returns normal. REVIEW OF SYSTEMS: General: No Fever, No Chills, No Night Sweats, No Fatigue, No Malaise, No Appetite HEENT: No Head Aches, No Visual Changes, No Eye Pain, No Ear Pain, No Dysphasia, No Sinus Congestion, No Post Nasal Drip, No Sore Throat Pulmonary: No Dyspnea; No Cough, No Pleuritic Chest Pain Cardiovascular: No: Chest Pain, Palpitations, Orthopnea, Paroxysmal Noc. Dyspnea, Edema, Lt Headedness Gastrointestinal: yes: Nausea, Vomiting, Abdominal Pain, No Diarrhea, Constipation, Melena, Hematochezia Genitourinary: No Dysuria, No Frequency, No Incontinence, No Hematuria, No Retention Musculoskeletal: No: other, neck pain, shoulder pain, arm pain, back pain, hand pain, leg pain, foot pain Skin: No Urticaria, No Rash Neurological: No: Weakness, Numbness, Incoordination, Change in speech, Confus ion, Seizures PHYSICAL EXAM: GENERAL: alert, weak, awake oriented x 3 HEENT: EOMI, Sclera non icteric, moist mucosa NECK: Supple, no JVD, trachea midline LUNGS: Clear breath sounds bilaterally. No wheezes HEART: Regular rate and rhythm. Normal S1 and S2, without murmurs ABD: Abdomen soft, tender to touch to right upper quadrant. Bowel sounds present EXT: No clubbing cyanosis or edema NEURO: Alert and oriented to person, follows commands Vital Signs (last 8hr) Date Time Temp Pulse Resp B/P (MAP) Pulse Ox O2 Delivery O2 Flow Rate FiO2 05/26/24 11:50 98.8 49 19 136/58 96 Room Air 21 05/26/24 08:10 98.2 53 16 140/69 99 Room Air 21 LABS: Hematology Labs: Test 05/26/24 05:33 05/25/24 18:37 Range/Units White Blood Count 5.7 4.8-10.8 K/uL Red Blood Count 3.67 L 4.00-5.50 MIL/uL Hemoglobin 10.4 L 12.0-16.0 g/dL Hematocrit 32.5 L 36-48 % Mean Corpuscular Volume 88.6 79-99 fL Mean Corpuscular Hemoglobin 28.3 27.0-33.0 pg Mean Corpuscular Hemoglobin Concent 32.0 32.0-36.0 g/dL Red Cell Distribution Width 13.3 11.0-15.5 % Platelet Count 231 130-400 K/uL Mean Platelet Volume 10.0 7.5-10.5 fL Nucleated Red Blood Cells 0.0 0.0-0.19 % Immature Granulocyte % (Auto) 0.5 0-1 % Neutrophils (%) (Auto) 61.9 40.0-77.0 % Lymphocytes (%) (Auto) 29.2 21.0-51.0 % Monocytes (%) (Auto) 6.6 3.0-13.0 % Eosinophils (%) (Auto) 1.3 0.0-8.0 % Basophils (%) (Auto) 0.5 0.0-5.0 % Neutrophils # (Auto) 3.9 1.8-7.7 K/uL Lymphocytes # (Auto) 1.8 1.0-4.8 K/uL Monocytes # (Auto) 0.4 0.1-1.0 K/uL Eosinophils # (Auto) 0.08 0.00-0.70 K/uL Basophils # (Auto) 0.03 0.00-0.20 K/uL Absolute Immature Granulocyte (auto 0.03 0-1 K/uL Chemistry Labs: Test 05/26/24 10:30 05/26/24 05:33 05/26/24 00:32 05/25/24 18:37 Range/Units Whole Blood Glucose 92 70-110 MG/DL Sodium Level 146 H 136-145 mmol/L Potassium Level 3.9 3.5-5.1 mmol/L Chloride Level 112 H 101-111 mmol/L Carbon Dioxide Level 31 21-32 mmol/L Blood Urea Nitrogen 5 L 7-18 mg/dL Creatinine 0.8 0.5-1.0 mg/dL Glomerular Filtration Rate Calc 77 >90 mL/min Random Glucose 84 70-105 mg/dL Total Calcium 8.3 L 8.5-10.1 mg/dL Phosphorus Level 3.0 2.5-4.9 mg/dL Magnesium Level 2.60 H 1.80-2.40 mg/dL Ionized Calcium 1.12 L 1.16-1.32 MMOL/L Lactic Acid Level 1.0 0.8-2.5 mmol/L Total Bilirubin 0.6 0.2-1.0 mg/dL Aspartate Amino Transf (AST/SGOT) 20 10-37 U/L Alanine Aminotransferase (ALT/SGPT) 16 # 12-78 U/L Alkaline Phosphatase 73 50-136 U/L Total Protein 6.0 6.0-8.3 g/dL Albumin 2.8 L 3.5-5.0 g/dL Procalcitonin < 0.05 L 0.05-0.5 ng/mL Test 05/24/24 22:38 Range/Units Direct Bilirubin 0.1 0.0-0.3 mg/dL Troponin I High Sensitivity 12 4-50 ng/L Lipase 42 16-77 U/L DIAGNOSTICS / RADIOLOGY RESULTS: [ ] PLAN NEURO: Minimize central acting medications as possible. Maintain fall precautions, adequate lighting during the day PULMONARY: Supplemental 02 as needed. Maintain aspiration precautions at all times CARDIOVASCULAR: Follow hemodynamics. Vital signs per facility protocol GI & NUTRITION: Continue with nutritional support. Continue stool softeners and laxatives as needed. Obtain HIDA scan Consult gen surgery for cholelithiasis possible cholecystitis IVF KIDNEYS & ELECTROLYTES: Strict monitoring of intake, output and overall fluid balance. Avoid nephrotoxic medications to the extent possible. Medications to be dosed according to renal function. Monitor electrolytes and replace as needed Consult urology for kidney stone IVF Trend renal function ENDOCRINE: Maintain blood glucose between 100-180 at all times. Hypoglycemia protocol in place INFECTIOUS DISEASE: Trend temperature, WBC and procalcitonin level Follow cultures, deescalate antibiotics as soon as possible. Panculture if new onset fever Rocephin Continue to follow culture ONCOLOGY/HEMATOLOGY/COAGULATION: Monitor for s/s of bleeding Monitor hemoglobin, coagulation studies as needed SKIN: Pressure ulcer prevention per facility protocol Specialty mattress ORTHO/REHAB: Continue PT/OT Prophylaxis: Continue GI and DVT prophylaxis Code Status: Full Resuscitation Disposition: TBD Other: Total patient care time exceeds 35 minutes excluding all procedures. MARINA CLEMENTS May 26, 2024 15:56
--- NOTE | 2024-05-26 16:03 | CONS ---
[facility] Cardiology Consultation Note Cardiology consult dictated for Ayaka Joseph MD Date of service 05/26/2024 Chief complaint: Abdominal pain, nausea, vomiting Reason for consult: Asymptomatic bradycardia History of present illness: This is a 73-year-old female presented for evaluation of nausea and vomiting. This was associated with fatty food intake. She underwent a CT scan demonstrating a distended gallbladder with very large gallstones within it. HIDA scan demonstrated delayed ejection fraction and has been diagnosed with symptomatic cholelithiasis. Cardiology consult was requested due to episode of bradycardia and second-degree AV block 2-1. Patient has no previous cardiac history denies chest pain shortness of breath dizziness syncope or palpitations. She does not recall the name of her medications at home but takes three medications one for hypertension, one for dyslipidemia and one for heartburn. Review of systems: 14 point review of systems performed pertinent positives and negatives discussed in HPI. Past medical history: Positive for hypertension, dyslipidemia. Negative for CVA TIA no PE no DVT no liver kidney or thyroid disease Past surgical history: Positive for total hysterectomy Allergies: No known allergies Social history: Patient lives with family denies tobacco alcohol or illicit drug use Family history: Noncontributory Twelve lead EKG: Sinus rhythm heart rate of 71 beats per minute no acute findings. Physical exam: Blood pressure 136/58 heart rate of 49 beats per minute and regular normal S1-S2 no rubs gallops murmurs noted. Neck is supple no jugular vein distention no carotid bruits. Bilateral breath sounds are clear to auscultation. Lower extremities no edema no cyanosis. Patient is alert awake and oriented. All others within normal limits. Review of blood work: White blood cells 5.7, hemoglobin of 10.4, hematocrit of 32.5 and platelets of 231. Basic metabolic panel with a sodium of 146, potassi um 3.9, BUN of five and a creatinine of 0.8 with a normal GFR and a magnesium of 2.60. Assessment: Cholelithiasis Asymptomatic bradycardia Episodes of second-degree AV block Hypertension Dyslipidemia Plan: 73-year-old female presented for evaluation of abdominal pain nausea and vomiting. She is pending cholecystectomy tomorrow. Cardiology consult was requested due to episodes of bradycardia and second-degree AV block. EKG and telemetry strips reviewed SB 2AVB 2:1, while sleeping with narrow QRS making it less likely to be second degree type 2 AVB. Patient is completely asymptomatic ,denies chest pain shortness of breath dizziness syncope or palpitations. She has no previous cardiac history. Cardiac-carr she can proceed with surgery as required. Avoid rate slowing drugs during surgery and anesthesia. We will sign off but can re-evaluate patient if needed. ATTESTATION BY PHYSICIAN I have seen and examined the patient. I reviewed the documentation, medical decision making, and treatment plan as noted by the mid-level provider above. I agree with the findings and plan of care. AYAKA JOSEPH MD, [facility] May 26, 2024 16:02 AYAKA JOSEPH MD May 26, 2024 16:07
[2024-05-27] VITALS (27 sets, daily range): BP systolic 132–174; BP diastolic 57–78; PULSE 50–77; RESP 12–20; TEMP 97–98.9; O2SAT 94–98
[2024-05-27] MEDS ORDERED: HYDR12.54 PO (06:01)
[2024-05-27] MEDS ORDERED: ESOM40CA66 PO (06:01)
[2024-05-27] MEDS ORDERED: SIMV10TA97 PO (06:01)
[2024-05-27 06:54] LABS: BASOPHILS # (AUTO) 0.03 K/uL (0.00-0.20); BASOPHILS % (AUTO) 0.6 % (0.0-5.0); EOSINOPHILS # (AUTO) 0.12 K/uL (0.00-0.70); EOSINOPHILS % (AUTO) 2.2 % (0.0-8.0); HEMATOCRIT 31.4 % (36-48); IMMATURE GRANULOCYTE ABSOLUTE 0.02 K/uL (0-1); LYMPHOCYTES % (AUTO) 36.4 % (21.0-51.0); MEAN CORPUSCULAR HEMOGLOBIN 27.9 pg (27.0-33.0); MEAN CORPUSCULAR HGB CONC 31.8 g/dL (32.0-36.0); MEAN CORPUSCULAR VOLUME 87.7 fL (79-99); MONOCYTES # (AUTO) 0.4 K/uL (0.1-1.0); MONOCYTES % (AUTO) 7.6 % (3.0-13.0); NEUTROPHILS # (AUTO) 2.9 K/uL (1.8-7.7); NEUTROPHILS % (AUTO) 52.8 % (40.0-77.0); PLATELET COUNT (AUTO) 228 K/uL (130-400); RED BLOOD CELL COUNT(AUTO) 3.58 MIL/uL (4.00-5.50); RED CELL DISTRIBUTION WIDTH 13.4 % (11.0-15.5); WHITE BLOOD COUNT (AUTO) 5.4 K/uL (4.8-10.8)
[2024-05-27 07:09] LABS: CREATININE 0.9 mg/dL (0.5-1.0); POTASSIUM 4.5 mmol/L (3.5-5.1)
[2024-05-27] MEDS: BUPIvacaine/PF 0.5% 30ML VIAL INJ ONE (07:42)
[2024-05-27] MEDS ORDERED: BUPIvacaine/PF 0.5% 30ML VIAL ONE (07:42)
[2024-05-27] MEDS ORDERED: IOHEXOL-350 50ML VIAL IV ONE (08:23)
[2024-05-27] MEDS ORDERED: LIDOCAINE HCL-MPF 2% 10ML AMP IJ ONE (08:45)
[2024-05-27] MEDS ORDERED: SUCCINYLCHOLINE CHLORIDE 20 MG/ML 10 ML VIAL ONE (08:46)
[2024-05-27] MEDS ORDERED: proPOFol 10 MG/ML 20ML VIAL IV ONE (08:47)
[2024-05-27] MEDS ORDERED: FENTanyl CITRate PF 50 MCG/1 ML 2ML VIAL ONE ×2 (08:47→09:28)
[2024-05-27] MEDS ORDERED: MIDAZOLAM HCL 1 MG/ML 2ML VIAL ONE (08:47)
[2024-05-27] MEDS ORDERED: rocuRONium bROMide 10MG/1ML 5ML VL ONE (08:47)
[2024-05-27] MEDS ORDERED: dexaMETHasone SOD PHOSPHATE 10MG/ML 1ML VIAL ONE (09:15)
[2024-05-27] MEDS ORDERED: ondanSETRON 4MG INJ ONE (09:15)
--- NOTE | 2024-05-27 09:46 | HMCIMG ---
ULTRASOUND RENAL COMPLETE INDICATION: Hydronephrosis, passing of renal calculi TECHNIQUE: Routine ultrasound of the kidneys and urinary bladder with grayscale and color Doppler imaging was performed in real-time, and subsequently made available for review. COMPARISON: 05/25/2024. FINDINGS: The right kidney measures 10.7 x 5.3 x 4.9 cm. No abnormal mass demonstrated. Mild right hydroureteronephrosis demonstrated. The left kidney measures 10.5 x 4.6 x 3.9 cm. No abnormal mass demonstrated. No evidence for hydronephrosis or shadowing stone. Urinary bladder appears normal. No free fluid demonstrated. IMPRESSION: Mild right hydroureteronephrosis, previously moderate degree.
[2024-05-27] MEDS ORDERED: GLYCOPYRROLATE 0.2 MG/ML 5 ML VIAL ONE (09:47)
[2024-05-27] MEDS ORDERED: NEOSTIGMINE METHYLSULFATE 1MG/ML IV ONE (09:47)
[2024-05-27] MEDS ORDERED: ketOROlac 30MG VIAL (30MG/ML) ONE (09:49)
--- NOTE | 2024-05-27 10:08 | HMCIMG ---
INTRAOPERATIVE FLUOROSCOPIC GUIDANCE UP TO 1 HOUR. IMPRESSION: Intraoperative fluoroscopic guidance was provided for laparoscopic cholecystectomy, which was performed by Dr. Menezes. Total fluoroscopy time was 11.4 seconds, and administered dose, 1.04 mGy. A total of 3 spot images obtained. Please refer to the procedure note for further details.
--- NOTE | 2024-05-27 10:08 | OP ---
Operative Note: DATE OF PROCEDURE: 05/27/24 SURGEON: YORDAN SAMANIEGO MD NIGHT BAKER: [IESHA Ross] ANESTHESIA: [General endotracheal anesthesia] ANESTHESIOLOGIST/FIELD CARE ADVOCATE: [[facility] anesthesia team] PREOPERATIVE DIAGNOSIS: [Gallstones causing patient discomfort] POSTOPERATIVE DIAGNOSIS: [Same] SYNOPSIS: [Gallstones causing patient discomfort Laparoscopic cholecystectomy with intraoperative cholangiogram #1 critical view obtained, #2 intraoperative cholangiogram with good flow of contrast from cystic duct into common bile duct, right and left hepatic duct, and duodenum noted All sponges and instruments were accounted for at the end the case Patient tolerated the procedure well, there no complications] PROCEDURE: [Laparoscopic cholecystectomy with intraoperative cholangiogram] ESTIMATED BLOOD LOSS: [Less than 10 cc] INDICATIONS: [Gallstones causing patient discomfort] DESCRIPTION OF PROCEDURE: [On day of surgery patient was brought to the operating room. Positioned in the supine position. Preoperative antibiotics were given. Bilateral SCDs were placed. The patient was intubated. Patient then was prepped and draped in the usual fashion. Then a skin incision was made in the right upper quadrant. 5 mm trochars inserted under direct vision. Abdomen was insufflated to 15 mmHg. No injury to omentum or bowel is noted. A 5 mm port was placed in the umbilicus. A 12 mm port was placed in the subxiphoid position. A 5 mm port was placed in the right lateral abdomen. The gallbladder was grasped, elevated, the cystic duct and cystic artery was sequentially dissected. Critical view was obtained. An intraoperative cholangiogram was conducted by placing a clip at the distal end of the cystic duct. Ductotomy was made. A cholangiocatheter was introduced. Good flow of contrast from the cystic duct into common bile duct, right and left hepatic duct, and duodenum was noted. The Cholangiocath was removed. The cystic duct was sequentially clipped and transected. The cystic artery was then sequentially clipped and transected. The gallbladder then was dissected off the gallbladder fossa and removed an Endo Catch bag. Abdomen was irrigated. Appropriate hemostasis was noted. Then all insufflation gas was removed. Ports were removed. Local anesthetic was instilled into the incisions, and the incisions were closed with a subcuticular fashion. All sponges and instruments were accounted for at the end of the case. Patient tolerated the procedure well, there were no complications.] YORDAN SAMANIEGO MD May 27, 2024 10:08
[2024-05-27] MEDS: methoCARBamol 500 MG TABLET PO SCH (13:58)
[2024-05-27] MEDS: GABApentin 100 MG CAPSULE PO SCH (13:59)
--- NOTE | 2024-05-27 15:50 | PN ---
[facility] PROGRESS NOTE Date Patient Seen: May 27, 2024 Time of Visit: 15:48 Supervising Physician: Dr. Kavin Russell Primary Care Physician: Dr. Mile Santana Outpatient Specialists: NA Inpatient Consults: Dr. Menezes, Dr. Barton PROBLEM LIST: Acute cholelithiasis, symptomatic - s/p laparoscopic cholecystectomy performed on 05/27/2024 Acute complicated cystitis Right hydronephrosis with right hydroureter with 5 mm renal stone Hypernatremia 2/2 hypovolemia Hypokalemia Hypertension Sinus bradycardia Hx. Hypertension, hyperlipidemia, GERD INTERVAL HISTORY: Patient currently in the OR, undergoing lap holly procedure. Patient's renal ultrasound returned positive for mild hydronephrosis, described as moderate on prior study. At this time she is still pending to be seen by Urology. Cardiology has signed off case with no interventions at this time and she is cleared for surgery patient's white count this morning was 5.4 renal function within normal limits, hemoglobin stable at 10.0. She continues on ceftriaxone at this time. We will follow up with the patient postoperatively following general surgery recommendations. Plan Pending lap holly today Pending Cardiology consultation and recommendations regarding bradycardia and type 2 block Renal ultrasound positive for mild hydronephrosis, downgraded from moderate on previous study REVIEW OF SYSTEMS: General: No Fever, No Chills, No Night Sweats, No Fatigue, No Malaise, No Appetite HEENT: No Head Aches, No Visual Changes, No Eye Pain, No Ear Pain, No Dysphasia, No Sinus Congestion, No Post Nasal Drip, No Sore Throat Pulmonary: No Dyspnea; No Cough, No Pleuritic Chest Pain Cardiovascular: No: Chest Pain, Palpitations, Orthopnea, Paroxysmal Noc. Dyspnea, Edema, Lt Headedness Gastrointestinal: yes: Nausea, Vomiting, Abdominal Pain, No Diarrhea, Constipation, Melena, Hematochezia Genitourinary: No Dysuria, No Frequency, No Incontinence, No Hematuria, No Retention Musculoskeletal: No: other, neck pain, shoulder pain, arm pain, back pain, hand pain, leg pain, foot pain Skin: No Urticaria, No Rash Neurological: No: Weakness, Numbness, Incoordination, Change in speech, Confusion, Seizures PHYSICAL EXAM: GENERAL: alert, weak, awake oriented x 3 HEENT: EOMI, Sclera non icteric, moist mucosa NECK: Supple, no JVD, trachea midline LUNGS: Clear breath sounds bilaterally. No wheezes HEART: Regular rate and rhythm. Normal S1 and S2, without murmurs ABD: Abdomen soft, tender to touch to right upper quadrant. Bowel sounds present EXT: No clubbing cyanosis or edema NEURO: Alert and oriented to person, follows commands Vital Signs (last 8hr) Date Time Temp Pulse Resp B/P (MAP) Pulse Ox O2 Delivery O2 Flow Rate FiO2 05/27/24 14:00 73 164/78 94 05/27/24 13:15 57 158/67 95 05/27/24 13:00 58 159/69 96 05/27/24 12:45 58 165/67 96 05/27/24 11:45 60 166/72 97 05/27/24 11:30 98.1 55 174/74 99 05/27/24 11:25 97.3 56 15 156/65 99 Nasal Cannula 2.0 05/27/24 11:20 58 14 157/59 98 Nasal Cannula 2.0 05/27/24 11:15 57 14 154/69 99 Nasal Cannula 2.0 05/27/24 11:10 55 13 156/65 99 Nasal Cannula 2.0 05/27/24 11:05 59 15 152/62 98 Nasal Cannula 2.0 05/27/24 11:00 55 13 154/60 99 Nasal Cannula 2.0 05/27/24 10:55 54 13 148/60 99 Nasal Cannula 2.0 05/27/24 10:50 54 14 148/58 98 Nasal Cannula 2.0 05/27/24 10:45 52 12 148/63 96 Nasal Cannula 2.0 05/27/24 10:43 98 Room Air* 0 21 05/27/24 10:40 53 14 147/60 100 Nonrebreathing Mask 100 05/27/24 10:35 51 12 146/57 100 Nonrebreathing Mask 100 05/27/24 10:30 50 12 145/57 100 Nonrebreathing Mask 100 05/27/24 10:25 97.0 51 13 139/57 100 Nonrebreathing Mask 100 LABS: Hematology Labs: Test 05/27/24 06:30 Range/Units White Blood Count 5.4 4.8-10.8 K/uL Red Blood Count 3.58 L 4.00-5.50 MIL/uL Hemoglobin 10.0 L 12.0-16.0 g/dL Hematocrit 31.4 L 36-48 % Mean Corpuscular Volume 87.7 79-99 fL Mean Corpuscular Hemoglobin 27.9 27.0-33.0 pg Mean Corpuscular Hemoglobin Concent 31.8 L 32.0-36.0 g/dL Red Cell Distribution Width 13.4 11.0-15.5 % Platelet Count 228 130-400 K/uL Mean Platelet Volume 10.3 7.5-10.5 fL Immature Granulocyte % (Auto) 0.4 0-1 % Neutrophils (%) (Auto) 52.8 40.0-77.0 % Lymphocytes (%) (Auto) 36.4 21.0-51.0 % Monocytes (%) (Auto) 7.6 3.0-13.0 % Eosinophils (%) (Auto) 2.2 0.0-8.0 % Basophils (%) (Auto) 0.6 0.0-5.0 % Neutrophils # (Auto) 2.9 1.8-7.7 K/uL Lymphocytes # (Auto) 2.0 1.0-4.8 K/uL Monocytes # (Auto) 0.4 0.1-1.0 K/uL Eosinophils # (Auto) 0.12 0.00-0.70 K/uL Basophils # (Auto) 0.03 0.00-0.20 K/uL Absolute Immature Granulocyte (auto 0.02 0-1 K/uL Nucleated Red Blood Cells 0.0 0.0-0.19 % Chemistry Labs: Test 05/27/24 11:37 05/27/24 06:30 05/26/24 05:33 05/26/24 00:32 Range/Units Whole Blood Glucose 102 70-110 MG/DL Sodium Level 147 H 136-145 mmol/L Potassium Level 4.5 3.5-5.1 mmol/L Chloride Level 112 H 101-111 mmol/L Carbon Dioxide Level 30 21-32 mmol/L Blood Urea Nitrogen 6 L 7-18 mg/dL Creatinine 0.9 0.5-1.0 mg/dL Glomerular Filtration Rate Calc 67 >90 mL/min Random Glucose 85 70-105 mg/dL Total Calcium 8.2 L 8.5-10.1 mg/dL Phosphorus Level 3.0 2.5-4.9 mg/dL Magnesium Level 2.60 H 1.80-2.40 mg/dL Ionized Calcium 1.12 L 1.16-1.32 MMOL/L Test 05/25/24 18:37 Range/Units Lactic Acid Level 1.0 0.8-2.5 mmol/L Total Bilirubin 0.6 0.2-1.0 mg/dL Aspartate Amino Transf (AST/SGOT) 20 10-37 U/L Alanine Aminotransferase (ALT/SGPT) 16 # 12-78 U/L Alkaline Phosphatase 73 50-136 U/L Total Protein 6.0 6.0-8.3 g/dL Albumin 2.8 L 3.5-5.0 g/dL Procalcitonin < 0.05 L 0.05-0.5 ng/mL DIAGNOSTICS / RADIOLOGY RESULTS: [ ] PLAN NEURO: Minimize central acting medications as possible. Maintain fall precautions, adequate lighting during the day PULMONARY: Supplemental 02 as needed. Maintain aspiration precautions at all times CARDIOVASCULAR: Follow hemodynamics. Vital signs per facility protocol GI & NUTRITION: Continue with nutritional support. Continue stool softeners and laxatives as needed. Obtain HIDA scan Consult gen surgery for cholelithiasis possible cholecystitis IVF KIDNEYS & ELECTROLYTES: Strict monitoring of intake, output and overall fluid balance. Avoid nephrotoxic medications to the extent possible. Medications to be dosed according to renal function. Monitor electrolytes and replace as needed Consult urology for kidney stone IVF Trend renal function ENDOCRINE: Maintain blood glucose between 100-180 at all times. Hypoglycemia protocol in place INFECTIOUS DISEASE: Trend temperature, WBC and procalcitonin level Follow cultures, deescalate antibiotics as soon as possible. Panculture if new onset fever Rocephin Continue to follow culture ONCOLOGY/HEMATOLOGY/COAGULATION: Monitor for s/s of bleeding Monitor hemoglobin, coagulation studies as needed SKIN: Pressure ulcer prevention per facility protocol Specialty mattress ORTHO/REHAB: Continue PT/OT Prophylaxis: Continue GI and DVT prophylaxis Code Status: Full Resuscitation Disposition: TBD Other: Total patient care time exceeds 35 minutes excluding all procedures. MARINA CLEMENTS May 27, 2024 15:50
[2024-05-27] MEDS: traMADol HCL 50 MG TABLET PO PRN (19:07)
[2024-05-28] VITALS (7 sets, daily range): BP systolic 55–136; BP diastolic 51–60; PULSE 52–69; RESP 16–18; TEMP 98.3–99; O2SAT 94–97
[2024-05-28 05:18] LABS: HEMATOCRIT 31.4 % (36-48); MEAN CORPUSCULAR HEMOGLOBIN 28.4 pg (27.0-33.0); MEAN CORPUSCULAR HGB CONC 32.2 g/dL (32.0-36.0); MEAN CORPUSCULAR VOLUME 88.2 fL (79-99); RED BLOOD CELL COUNT(AUTO) 3.56 MIL/uL (4.00-5.50); RED CELL DISTRIBUTION WIDTH 13.2 % (11.0-15.5); WHITE BLOOD COUNT (AUTO) 6.6 K/uL (4.8-10.8)
[2024-05-28 05:44] LABS: ALBUMIN 2.4 g/dL (3.5-5.0); BILIRUBIN,TOTAL 0.5 mg/dL (0.2-1.0); CREATININE 0.8 mg/dL (0.5-1.0); POTASSIUM 4.4 mmol/L (3.5-5.1); TOTAL PROTEIN, SERUM 5.3 g/dL (6.0-8.3)
--- NOTE | 2024-05-28 12:55 | NUR ---
SPOKE DR SOLARES OFFICE AND WAS ADVISED MD WAS NEVER MADE AWARE AND STILL ISN'T AVAILABLE TODAY WILL NEED TO CONTACT SOMEONE ELSE. TANJA WAS MADE AWARE.
--- NOTE | 2024-05-28 21:37 | PN ---
[facility] PROGRESS NOTE Date Patient Seen: May 28, 2024 Time of Visit: 21:35 Supervising Physician: Dr. Kavin Russell Primary Care Physician: Dr. Mile Santana Outpatient Specialists: NA Inpatient Consults: Dr. Menezes, Dr. Barton PROBLEM LIST: Acute cholelithiasis, symptomatic - s/p laparoscopic cholecystectomy performed on 05/27/2024 Acute complicated cystitis Right hydronephrosis with right hydroureter with 5 mm renal stone Hypernatremia 2/2 hypovolemia Hypokalemia Hypertension Sinus bradycardia Hx. Hypertension, hyperlipidemia, GERD INTERVAL HISTORY: Patient was seen at bedside today, she is postop day one lap holly procedure. Patient continues on Rocephin at this time for complicated cystitis, hydronephrosis shows mild improvement based on her 2nd renal ultrasound. White count today is 6.6, hemoglobin remained stable at 10.1. Renal function is within normal limits at this time. Patient's bilirubin is within normal limits as well, AST remained slightly elevated 76, ALT 52. Patient appears to be doing well, she is tolerating her diet well, no complaints regarding bowel movements. We will continue to monitor the patient's progress with her hydronephrosis, pending Urology consultation at this time. She continues on antibiotic therapy for the time being. REVIEW OF SYSTEMS: General: No Fever, No Chills, No Night Sweats, No Fatigue, No Malaise, No Appetite HEENT: No Head Aches, No Visual Changes, No Eye Pain, No Ear Pain, No Dysphasia, No Sinus Congestion, No Post Nasal Drip, No Sore Throat Pulmonary: No Dyspnea; No Cough, No Pleuritic Chest Pain Cardiovascular: No: Chest Pain, Palpitations, Orthopnea, Paroxysmal Noc. Dyspnea, Edema, Lt Headedness Gastrointestinal: yes: Nausea, Vomiting, Abdominal Pain, No Diarrhea, Constipation, Melena, Hematochezia Genitourinary: No Dysuria, No Frequency, No Incontinence, No Hematuria, No Retention Musculoskeletal: No: other, neck pain, shoulder pain, arm pain, back pain, hand pain, leg pain, foot pain Skin: No Urticaria, No Rash Neurological: No: Weakness, Numbness, Incoordination, Change in speech, Confusion, Seizures PHYSICAL EXAM: GENERAL: alert, weak, awake oriented x 3 HEENT: EOMI, Sclera non icteric, moist mucosa NECK: Supple, no JVD, trachea midline LUNGS: Clear breath sounds bilaterally. No wheezes HEART: Regular rate and rhythm. Normal S1 and S2, without murmurs ABD: Abdomen soft, tender to touch to right upper quadrant. Bowel sounds present EXT: No clubbing cyanosis or edema NEURO: Alert and oriented to person, follows commands Vital Signs (last 8hr) Date Time Temp Pulse Resp B/P (MAP) Pulse Ox O2 Delivery O2 Flow Rate FiO2 05/28/24 20:05 97 Room Air* 0 21 05/28/24 20:00 99.0 65 17 136/60 97 Room Air 05/28/24 16:00 98.4 69 18 104/52 96 Room Air LABS: Hematology Labs: Test 05/28/24 05:08 05/27/24 06:30 Range/Units White Blood Count 6.6 4.8-10.8 K/uL Red Blood Count 3.56 L 4.00-5.50 MIL/uL Hemoglobin 10.1 L 12.0-16.0 g/dL Hematocrit 31.4 L 36-48 % Mean Corpuscular Volume 88.2 79-99 fL Mean Corpuscular Hemoglobin 28.4 27.0-33.0 pg Mean Corpuscular Hemoglobin Concent 32.2 32.0-36.0 g/dL Red Cell Distribution Width 13.2 11.0-15.5 % Platelet Count 198 130-400 K/uL Mean Platelet Volume 10.4 7.5-10.5 fL Nucleated Red Blood Cells 0.0 0.0-0.19 % Immature Granulocyte % (Auto) 0.4 0-1 % Neutrophils (%) (Auto) 52.8 40.0-77.0 % Lymphocytes (%) (Auto) 36.4 21.0-51.0 % Monocytes (%) (Auto) 7.6 3.0-13.0 % Eosinophils (%) (Auto) 2.2 0.0-8.0 % Basophils (%) (Auto) 0.6 0.0-5.0 % Neutrophils # (Auto) 2.9 1.8-7.7 K/uL Lymphocytes # (Auto) 2.0 1.0-4.8 K/uL Monocytes # (Auto) 0.4 0.1-1.0 K/uL Eosinophils # (Auto) 0.12 0.00-0.70 K/uL Basophils # (Auto) 0.03 0.00-0.20 K/uL Absolute Immature Granulocyte (auto 0.02 0-1 K/uL Chemistry Labs: Test 05/28/24 19:42 05/28/24 05:08 Range/Units Whole Blood Glucose 130 H 70-110 MG/DL Sodium Level 143 136-145 mmol/L Potassium Level 4.4 3.5-5.1 mmol/L Chloride Level 108 101-111 mmol/L Carbon Dioxide Level 28 21-32 mmol/L Blood Urea Nitrogen 9 7-18 mg/dL Creatinine 0.8 0.5-1.0 mg/dL Glomerular Filtration Rate Calc 77 >90 mL/min Random Glucose 121 H 70-105 mg/dL Total Calcium 8.1 L 8.5-10.1 mg/dL Total Bilirubin 0.5 0.2-1.0 mg/dL Aspartate Amino Transf (AST/SGOT) 76 H 10-37 U/L Alanine Aminotransferase (ALT/SGPT) 52 12-78 U/L Alkaline Phosphatase 63 50-136 U/L Total Protein 5.3 L 6.0-8.3 g/dL Albumin 2.4 L 3.5-5.0 g/dL DIAGNOSTICS / RADIOLOGY RESULTS: [ ] PLAN NEURO: Minimize central acting medications as possible. Maintain fall precautions, adequate lighting during the day PULMONARY: Supplemental 02 as needed. Maintain aspiration precautions at all times CARDIOVASCULAR: Follow hemodynamics. Vital signs per facility protocol GI & NUTRITION: Continue with nutritional support. Continue stool softeners and laxatives as needed. Obtain HIDA scan Consult gen surgery for cholelithiasis possible cholecystitis IVF KIDNEYS & ELECTROLYTES: Strict monitoring of intake, output and overall fluid balance. Avoid nephrotoxic medications to the extent possible. Medications to be dosed according to renal function. Monitor electrolytes and replace as needed Consult urology for kidney stone IVF Trend renal function ENDOCRINE: Maintain blood glucose between 100-180 at all times. Hypoglycemia protocol in place INFECTIOUS DISEASE: Trend temperature, WBC and procalcitonin level Follow cultures, deescalate antibiotics as soon as possible. Panculture if new onset fever Rocephin Continue to follow culture ONCOLOGY/HEMATOLOGY/COAGULATION: Monitor for s/s of bleeding Monitor hemoglobin, coagulation studies as needed SKIN: Pressure ulcer prevention per facility protocol Specialty mattress ORTHO/REHAB: Continue PT/OT Prophylaxis: Continue GI and DVT prophylaxis Code Status: Full Resuscitation Disposition: TBD Other: Total patient care time exceeds 35 minutes excluding all procedures. MARINA CLEMENTS May 28, 2024 21:37
[2024-05-29] VITALS: BP 106/57; PULSE 56; RESP 17; TEMP 98.5
[2024-05-29 04:00] VITALS: BP 105/53; PULSE 54; RESP 17; TEMP 98.2
[2024-05-29 05:59] LABS: MEAN CORPUSCULAR HGB CONC 32.8 g/dL (32.0-36.0); MEAN CORPUSCULAR VOLUME 88.4 fL (79-99); RED BLOOD CELL COUNT(AUTO) 3.28 MIL/uL (4.00-5.50); RED CELL DISTRIBUTION WIDTH 13.8 % (11.0-15.5); WHITE BLOOD COUNT (AUTO) 7.7 K/uL (4.8-10.8)
[2024-05-29 06:10] LABS: CREATININE 0.9 mg/dL (0.5-1.0); POTASSIUM 4.1 mmol/L (3.5-5.1)
[2024-05-29 07:56] VITALS: BP 102/48; PULSE 50; RESP 18; TEMP 97.9
[2024-05-29 11:53] VITALS: BP 113/55; PULSE 54; RESP 19; TEMP 98
[2024-05-29] MEDS ORDERED: LEVO750T68 PO (12:43)
--- NOTE | 2024-05-29 15:03 | DS ---
[facility] DISCHARGE SUMMARY Date Patient Seen: May 29, 2024 Time of Visit: 15:03 Supervising Physician: Dr. Kavin Russell Primary Care Physician: Dr. Mile Santana Outpatient Specialists: ATUL Inpatient Consults: Dr. Menezes, Dr. Barton HOSPITAL COURSE: HPI (per admitting provider) This is a 72-year-old female with past medical history of essential hypertension who came to the hospital with complaint of abdominal pain, nausea and vomiting. According to the patient, she has been having pain for the past five days. She reported pain in the right upper quadrant that did not radiate. She reported not taking any medication for this. She had been having nausea and vomiting but denies diarrhea. In addition, patient has dysuria. She denies any fever or chills. She denies any contact with sick person. Patient is an avid Coke drinker. She does not drink alcohol or smoke. In the ED, patient was found to have distended gallbladder per CT scan of the abdomen. Ultrasound of the abdomen was obtained and she has cholelithiasis with gallbladder wall thickening without any pericholecystic edema. She also has moderate right hydronephrosis with right hydroureter. HIDA scan is pending. In ED patient was found to have creatinine of 1.0 bicarb is 27 potassium is 3.4. She has WBC of 10 hemoglobin is 12.8. UA was with WBC 26 to 50. The patient was treated for the following problems: ACTIVE PROBLEM LIST FOR THE HOSPITALIZATION: Acute cholelithiasis, symptomatic - s/p laparoscopic cholecystectomy performed on 05/27/2024 Acute complicated cystitis, resolved Right hydronephrosis with right hydroureter with 5 mm renal stone, improved, outpatient follow-up with Urology Hypernatremia 2/2 hypovolemia, resolved Hypokalemia , resolved CHRONIC PROBLEMS: continue previous management per PCP unless otherwise indicated Hypertension Sinus bradycardia Hx. 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 PCP notified of patients admission, hospital course and discharge. PHYSICAL EXAM: GENERAL: alert, weak, awake oriented x 3 HEENT: EOMI, Sclera non icteric, moist mucosa NECK: Supple, no JVD, trachea midline LUNGS: Clear breath sounds bilaterally. No wheezes HEART: Regular rate and rhythm. Normal S1 and S2, without murmurs ABD: Abdomen soft, tender to touch to right upper quadrant. Bowel sounds present EXT: No clubbing cyanosis or edema NEURO: Alert and oriented to person, follows commands FOLLOW-UP: Follow-up with PCP in 2-3 days RECOMMENDATIONS: See Discharge Instructions This case was seen and discussed with my supervising physician. More than 30 minutes spent on discharge process, including evaluation of the patient, discussion with nursing staff, medication reconciliation and follow-up appointments MARINA CLEMENTS May 29, 2024 15:03
--- NOTE | 2024-05-29 16:45 | NUR ---
Patient ready to be discharged. Discontinued IV access. Discussed plan of care, pain management, home medication, current diet restrictions and follow up appointments.
== END 2024-05-29 16:45 | disposition home or self-care (01) | DRG 418 ==
LOC: EDH 22:22 → EDHIP 05-25 03:58 → OBSVTOIN 05-25 03:58 → 3DH 05-25 18:20
PROVIDERS: ADMIT Internal Medicine Critical Care Medicine; ATTEND Internal Medicine Critical Care Medicine
PROC: BF131ZZ Fluoroscopy of Gallbladder and Bile Ducts using Low Osmolar Contrast (ICD-10-PCS; 2024-05-27)
PROC: 0FT44ZZ Resection of Gallbladder, Percutaneous Endoscopic Approach (ICD-10-PCS; principal; 2024-05-27 08:45)
DX: K80.10 Calculus of gallbladder with chronic cholecystitis without obstruction (principal); E87.0 Hyperosmolality and hypernatremia; N13.2 Hydronephrosis with renal and ureteral calculous obstruction; N30.00 Acute cystitis without hematuria; I10 Essential (primary) hypertension; K82.8 Other specified diseases of gallbladder; E11.9 Type 2 diabetes mellitus without complications; E87.6 Hypokalemia; E86.1 Hypovolemia; E78.5 Hyperlipidemia, unspecified; I44.1 Atrioventricular block, second degree; K21.9 Gastro-esophageal reflux disease without esophagitis; Z90.710 Acquired absence of both cervix and uterus; Z79.899 Other long term (current) drug therapy
CPT/HCPCS: 36415; 74177; 74300; 76705; 76770; 78226; 80048; 80053; 80076; 81001; 82330; 82948; 83605; 83690; 83735; 84100; 84145; 84484; 85025; 85027; 87086; 88304; 93005; 93306; 93356; 99285; A9537; C1758; G0378; J0330; J0696; J1100; J1650; J1815; J1885; J2250; J2270; J2405; J2704; J2710; J3010; J3475; J3490; J7030; J7120; Q9967; A4600; A4649; A4930; J0665

== ENCOUNTER → 2024-08-20 | Outpatient (CLI) | payer OTHER, MEDICARE ==
[~2024-08-20] MED LIST: ESOM40CA66 PO; HYDR12.54 PO; LEVO750T68 PO; SIMV10TA97 PO
--- NOTE | 2024-08-20 13:17 | HMCIMG ---
CT ABDOMEN WITHOUT CONTRAST. CT PELVIS WITHOUT CONTRAST. INDICATION: Hydronephrosis, right flank pain TECHNIQUE: Routine transaxial imaging using 5 mm slice thickness through the abdomen and pelvis without the administration of IV contrast. Thin slice reconstructions are also provided. Coronal and sagittal reformatted images acquired for interpretation. CT was performed with one or more of the following dose reduction techniques: Automated exposure control, adjustment of the mA and/or kV according to patient size, or use of iterative reconstruction technique. COMPARISON: None FINDINGS: ON NONCONTRAST IMAGING: ABDOMEN: Heart size is normal. Coronary arterial wall calcific plaque noted. Visible lung bases are clear. No abnormal renal calcifications, hydronephrosis, perinephric inflammation, or proximal hydroureter detected. Small simple right greater than left renal parapelvic cysts. The liver is normal in size and smooth in contour without biliary duct dilation. The spleen is normal in size and attenuation. The gallbladder is absent. The pancreas appears normal without pancreatic duct dilation. The adrenal glands appear normal. No significant abdominal, retrocrural or retroperitoneal adenopathy noted. No evidence for intra-abdominal free air or organized fluid collection. No aortic aneurysmal dilation identified. PELVIS: No abnormal calcifications within the urinary bladder or distal ureters. No evidence for free air or organized pelvic fluid collection. No significant pelvic adenopathy detected. Several diverticula along the distal colon. Terminal ileum appears unremarkable. The appendix is absent. Uterus is absent. Mild thoracolumbar spondylosis. IMPRESSION: Small simple bilateral renal parapelvic cysts without hydronephrosis or hydroureteronephrosis. Distal colonic diverticulosis. Additional minor findings, postsurgical changes, and pertinent negatives as reported.
== END | disposition home or self-care (01) ==
LOC: RAH 11:42
PROVIDERS: ATTEND Urology
DX: K57.30 Diverticulosis of large intestine without perforation or abscess without bleeding (principal); N13.39 Other hydronephrosis; N20.0 Calculus of kidney; N28.1 Cyst of kidney, acquired; I25.10 Atherosclerotic heart disease of native coronary artery without angina pectoris; Z90.49 Acquired absence of other specified parts of digestive tract
CPT/HCPCS: 74176

== ENCOUNTER → 2024-09-25 | Outpatient (CLI) | payer MEDICARE | END | disposition home or self-care (01) | LOC: RAH 15:37 | PROVIDERS: ATTEND Family Medicine | DX: Z12.31 Encounter for screening mammogram for malignant neoplasm of breast (principal) | CPT/HCPCS: 77067 ==